=== PATIENT | male | born 1970 | race Caucasian/White ===

== ENCOUNTER 2024-02-28 13:07 | Outpatient (POV) | payer MEDICARE, SELFPAY ==
[2024-02-28 14:22] VITALS: BP 110/83; PULSE 74; RESP 18; O2SAT 93; BMI 32.3
--- NOTE | 2024-02-28 14:44 | A.OFFVIS_ITS ---
HPI Data of Consult Patient: known to practice within the last 3 years Consult date: 02/28/24 Requesting Physician: Pao Lea APRN Primary Care Provider: Bel Sylvester Consult Narrative Reason for consult: Chronic low back pain History of present illness: Mr. Conner is a 53 year old male who presents today as a new patient however he is a transfer from the [facility]. We were treating that patient in the office for degenerative disc disease of lumbar spine. Patient does state that he has had low back pain for years that is progressively worsened unrelated to any specific trauma or injury. Today he rates his pain a 4 out of 10. Patient does state that overall his intrathecal pump medication is working well. Patient is currently managed with morphine 5 mg/mL with a daily dose of 0.4803 mg/day and bupivacaine 5 mg/mL with a daily dose of 0.4803 mg/day. Patient did previously have a lumbar fusion back in 2018. Patient does state that he had tried conservative treatment prior to these options. Patient denies prior injection history. He does state that the pump has been a much better intervention than anything else prior. Patient was also prescribed Lyrica 200 mg twice a day from our office however once the [facility] temporarily closed he did end up having to go to his PCP to get this medication refilled. He does state that they are giving him a 3-month supply in order for him to get to this appointment. His Octavio has been reviewed and is appropriate. CC: Pao Lea APRN [facility] Disclaimer: The information contained in this section may have been updated after the patient was seen, as this information can be updated by other users. Medical History (Updated 02/28/24 @ 14:48 by Pao Lea APRN) HTN (hypertension) HLD (hyperlipidemia) Diabetes Fusion of lumbar spine Surgical History Hx of tonsillectomy Status post insertion of spinal cord stimulator History of appendectomy Family History (Updated 02/28/24 @ 13:45 by Amanda Silva RN) Other Unknown family medical history Social History (Updated 02/28/24 @ 13:46 by Amanda Silva, JESSICA) Smoking Status: Current every day smoker alcohol intake: never current occupational status: other Travel in the last 8 weeks: None Review of Systems Review of Systems Review of systems:: pertinent systems reviewed and negative unless documented below Review of systems (narrative): Review of Systems: General: No recent weight changes, no fever, no sleep disturbances Respiratory: No cough, no shortness of air, no recurring pulmonary infections Cardiovascular/peripheral vascular: No chest pain, no palpitations, no edema, no shortness of breath Gastrointestinal: No new onset incontinence, normal bowel movements reported Genitourinary: No new onset incontinence Musculoskeletal: Low back pain Psychiatric: [Normal mood/affect] Neurological: [Denies weakness in extremities], [denies balance issues] Meds Home Medications and Allergies New Prescriptions to Start Prescriptions: Objective Vital signs: Pulse Resp BP Pulse Ox O2 Del Method 74 18 110/83 93 L Room Air 02/28/24 14:02/28/24 14:02/28/24 14:02/28/24 14:02/28/24 14:22 Narrative: Physical Exam: General: Alert and oriented x3, no acute distress, pleasant and cooperative Lungs: Respirations even and unlabored, symmetrical chest expansion Eyes: PERRL Musculoskeletal: Flexion and extension of lumbar [spine] somewhat guarded secondary to pain, [antalgic gait noted] Neurological: Speech clear, no gross sensory deficit Assessment and Plan *Assessment and plan (1) Degenerative disc disease, lumbar: Status: Acute Category: Medical Code(s): M51.36 - Other intervertebral disc degeneration, lumbar region (2) Chronic pain syndrome: Status: Acute Category: Medical Code(s): G89.4 - Chronic pain syndrome (3) Fusion of lumbar spine: Status: Acute Category: Medical Code(s): M43.26 - Fusion of spine, lumbar region Plan Patient is doing well with his current pump medications. He has not A[facility] at home refill client. I have discussed with the patient that we have no problems continuing his pregabalin prescription and that if he would just call us about a week or 2 prior to his last refill from his PCP that we can send in an additional 3-month supply of this medication. Patient acknowledges understanding and agrees with this plan of care. Patient will return to clinic in 6 months for reevaluation of symptoms and plan of care. Patient has been instructed to contact the clinic with any concerns before the next appointment. Dr. Cavanaugh has reviewed this note and agrees with this plan of care. This note was dictated using voice recognition software and make contain errors or omissions. -- It Is medically necessary for this patient to continue to have their intrathecal pump refilled at regular intervals. This patient had an intrathecal pain pump implanted after meeting criteria of chronic intractable pain for greater than 3 months and failing conservative treatments. Patient has committed and been compliant to the treatment plan and all planned follow up care. Since implantation of the intrathecal pain pump, the patient has had decreased pain and been more functional. Oral medications have been reduced including intake of oral opioids. Patient continues to do well with intrathecal therapy with decrease in pain symptoms and increase in functional status. Stopping intrathecal medications can lead to life threatening withdrawal, seizures, cardiac arrest, severe pain, and possible . Pumps that are not refilled at regular intervals can be damages and cause and need for replacement. We continually titrate dose and concentration to optimize pain relief and function. We are limited in concentration for certain drugs to safely deliver medications through the pump and stay within the recommendations from the Polyanal[employer] Consensus [employer] Guidelines. Depending on dose and concentration these pumps may need to be refilled sooner than 3 months as we titrate.
== END 2024-02-28 23:59 | disposition home or self-care (01) ==
LOC: SC.PAIN 13:12
PROVIDERS: PCP Internal Medicine; Visit Provider Nurse Practitioner Family
DX: M51.36 Other intervertebral disc degeneration, lumbar region (principal); G89.4 Chronic pain syndrome; M43.26 Fusion of spine, lumbar region; Z97.8 Presence of other specified devices
CPT/HCPCS: 99202; G0463

== ENCOUNTER 2024-07-07 09:43 | Day surgery (SDC) | payer MEDICARE, SELFPAY ==
[2024-07-07 10:14] VITALS: BP 130/73; PULSE 69; RESP 16; O2SAT 92; BMI 32.3
[2024-07-07 10:46] VITALS: BP 121/74; PULSE 72; RESP 18; O2SAT 94
[2024-07-07 10:55] VITALS: BP 121/74; PULSE 72; RESP 18; O2SAT 97
[2024-07-07 11:04] VITALS: BP 132/69; PULSE 72; RESP 18; O2SAT 95
--- NOTE | 2024-07-07 12:38 | EXP.PAIN.PRO ---
Procedure Date: 07/07/24 Time: 10:12 Anesthesiologist:: Pao Lea APRN Complications:: None Pre-procedure Diagnosis:: Degenerative disc disease of lumbar spine with lumbar radiculopathy symptoms Post-procedure Diagnosis:: Same Indications for Procedure:: Patient is a pleasant 54-year-old male who presents today for intrathecal refill and reprogram. Today he rates his pain a 4 out of 10. Patient denies any new trauma or injury. Patient does state from her last visit he did have to have some toes amputated on his left foot. Patient states that he is still using a brace on that lower extremity to help with his walking. He does state that it is healing much better. Patient is currently managed with intrathecal morphine 5 mg/mL with a daily dose of 0.5287 mg/day and bupivacaine 5 mg/mL with a daily dose of 0.5287 mg/day. He denies any side effects from this medication. He is asking whether or not we could do a small increase today. His Octavio has been reviewed and is appropriate. Physical Exam: General: Alert and oriented x3, no acute distress, pleasant and cooperative Lungs: Respirations even and unlabored, symmetrical chest expansion Eyes: PERRL Musculoskeletal: Flexion and extension of lumbar [spine] somewhat guarded secondary to pain, [antalgic gait noted] Neurological: Speech clear, no gross sensory deficit Procedure Details:: Informed consent was obtained and the risk and benefits of the procedure were explained to the patient. The patient was taken to the procedure room where noninvasive monitoring was placed including noninvasive blood pressure cuff and pulse oximeter. Patient's pump was interrogated. The area over the pump was cleansed with chlorhexidine as a cleansing solution. In sterile fashion the pump was accessed with a 22-gauge needle. Approximately 5.2 mls of the pump solution was removed and discarded appropriately. The pump was then refilled with 20 mL's of morphine 5 mg/mL and bupivacaine 5 mg/mL. The needle was withdrawn and a bandage was placed over the puncture site. The infusion rate was reprogrammed and increased to morphine 0.6335 mg/day and bupivacaine 0.6335 mg/day. The patient tolerated well with no complication. Plan and Disposition:: Patient tolerated his intrathecal refill and reprogram with no complications and was discharged neurologically intact. Patient is scheduled to return to clinic on or before his next intrathecal refill date of 10/06/2024. Patient agrees with this plan of care. We will see the patient back in the clinic at the next intrathecal refill. Patient has been instructed to contact the clinic with any concerns before the next appointment. Dr. Cavanaugh has reviewed this note and agrees with this plan of care. This note was dictated using voice recognition software and make contain errors or omissions. -- It Is medically necessary for this patient to continue to have their intrathecal pump refilled at regular intervals. This patient had an intrathecal pain pump implanted after meeting criteria of chronic intractable pain for greater than 3 months and failing conservative treatments. Patient has committed and been compliant to the treatment plan and all planned follow up care. Since implantation of the intrathecal pain pump, the patient has had decreased pain and been more functional. Oral medications have been reduced including intake of oral opioids. Patient continues to do well with intrathecal therapy with decrease in pain symptoms and increase in functional status. Stopping intrathecal medications can lead to life threatening withdrawal, seizures, cardiac arrest, severe pain, and possible . Pumps that are not refilled at regular intervals can be damages and cause and need for replacement. We continually titrate dose and concentration to optimize pain relief and function. We are limited in concentration for certain drugs to safely deliver medications through the pump and stay within the recommendations from the Polyanalges[employer] Consensus Committee Guidelines. Depending on dose and concentration these pumps may need to be refilled sooner than 3 months as we titrate.
== END 2024-07-07 11:05 | disposition home or self-care (01) ==
LOC: SC.PAINP 09:45
PROVIDERS: PCP Internal Medicine; Visit Provider Nurse Practitioner Family
DX: M51.16 Intervertebral disc disorders with radiculopathy, lumbar region (principal)
CPT/HCPCS: 62370

== ENCOUNTER → 2024-09-19 11:05 | Day surgery (SDC) | payer MEDICARE, OTHER, SELFPAY ==
--- NOTE | 2024-09-19 11:20 | EXP.PAIN.PRO ---
Procedure Date: 09/19/24 Time: 11:43 Anesthesiologist:: Pao Lea APRN Complications:: None Pre-procedure Diagnosis:: Degenerative disc disease of lumbar spine with lumbar radiculopathy symptoms, chronic pain syndrome, history of lumbar fusion Post-procedure Diagnosis:: Same Indications for Procedure:: Patient is a pleasant 54-year-old male who presents today for intrathecal refill and reprogram. Today he rates his pain 2 out of a 10. Patient denies any new trauma or injury. He does state that he is primary care did end up trying him on gabapentin recently and he felt like this worked better than the pregabalin. Patient states he has been on pregabalin for about 2 years and always feels very groggy or in a fog. Patient states that the gabapentin did not do that however he felt like it night it was not working as well. Patient is asking if we can make any adjustments. Patient is currently managed with Morphine 5 mg/mL and bupivacaine 5 mg/mL with a daily dose of 0.6335 mg/day. He denies any side effects from this medication. He feels like the current dosage is working well. His Octavio has been reviewed and is appropriate. Physical Exam: General: Alert and oriented x3, no acute distress, pleasant and cooperative Lungs: Respirations even and unlabored, symmetrical chest expansion Eyes: PERRL Musculoskeletal: Flexion and extension of lumbar [spine] somewhat guarded secondary to pain, [antalgic gait noted] Neurological: Speech clear, no gross sensory deficit Procedure Details:: Informed consent was obtained and the risk and benefits of the procedure were explained to the patient. The patient had noninvasive monitoring placed including noninvasive blood pressure cuff and pulse oximeter. Patient's pump was interrogated. The area over the pump was cleansed with chlorhexidine as a cleansing solution. In sterile fashion the pump was accessed with a 22-gauge needle. Approximately 9 mls of the pump solution was removed and discarded appropriately. The pump was then refilled with 20 mL's of morphine 5 mg/mL and bupivacaine 5 mg/mL. The needle was withdrawn and a bandage was placed over the puncture site. The infusion rate was reprogrammed and continued at 0.6335 mg/day. The patient tolerated well with no complication. Plan and Disposition:: Patient tolerated his intrathecal refill and reprogram with no complications and was discharged neurologically intact. I did discuss with the patient that I will plan on taking back over the gabapentin and I will change it to 600 mg 4 times a day and provide a 1 month supply of this medication. I did discuss with the patient that I will follow-up with him next month to see if this is helping by taking 2 tablets at bedtime. If he does get significant relief with this we will keep this dosage however I did also discuss with him if he still has more trouble at night we may throwing and tizanidine 4 mg at bedtime. We will follow-up with this at his 1 month appointment. Patient will have his next intrathecal refill date of December 20, 2024 We will see the patient back in the clinic at the next intrathecal refill. Patient has been instructed to contact the clinic with any concerns before the next appointment. Dr. Cavanaugh has reviewed this note and agrees with this plan of care. This note was dictated using voice recognition software and make contain errors or omissions. -- It Is medically necessary for this patient to continue to have their intrathecal pump refilled at regular intervals. This patient had an intrathecal pain pump implanted after meeting criteria of chronic intractable pain for greater than 3 months and failing conservative treatments. Patient has committed and been compliant to the treatment plan and all planned follow up care. Since implantation of the intrathecal pain pump, the patient has had decreased pain and been more functional. Oral medications have been reduced including intake of oral opioids. Patient continues to do well with intrathecal therapy with decrease in pain symptoms and increase in functional status. Stopping intrathecal medications can lead to life threatening withdrawal, seizures, cardiac arrest, severe pain, and possible . Pumps that are not refilled at regular intervals can be damages and cause and need for replacement. We continually titrate dose and concentration to optimize pain relief and function. We are limited in concentration for certain drugs to safely deliver medications through the pump and stay within the recommendations from the Polyanalgesic Consensus Committee Guidelines. Depending on dose and concentration these pumps may need to be refilled sooner than 3 months as we titrate.
[2024-09-19 11:23] VITALS: BP 162/89; PULSE 77; RESP 18; O2SAT 94; BMI 31.5
[2024-09-19 11:32] VITALS: BP 144/84; PULSE 70; RESP 18; O2SAT 93
[2024-09-19 11:38] VITALS: BP 144/84; PULSE 70; RESP 18; O2SAT 93
[2024-09-19 11:50] VITALS: BP 129/72; PULSE 69; RESP 18; O2SAT 93
== END | disposition home or self-care (01) ==
PROVIDERS: PCP Internal Medicine; Visit Provider Nurse Anesthetist, Certified Registered
DX: M51.16 Intervertebral disc disorders with radiculopathy, lumbar region (principal); G89.4 Chronic pain syndrome; M43.26 Fusion of spine, lumbar region
CPT/HCPCS: 62370; 99212; G0463

== ENCOUNTER 2024-12-08 10:27 | Day surgery (SDC) | payer MEDICARE, SELFPAY ==
--- NOTE | 2024-12-08 10:47 | P.PCN_ITS ---
Procedure Date: 12/08/24 Time: 10:47 Anesthesiologist:: Pao Lea APRN Complications:: None Pre-procedure Diagnosis:: Degenerative disc disease of lumbar spine with lumbar radiculopathy symptoms, history of lumbar fusion, chronic pain syndrome Post-procedure Diagnosis:: Same Indications for Procedure:: Patient is a pleasant 54-year-old male who presents for intrathecal refill and reprogram. Today he rates his pain a 3 out of 10. He denies any new trauma or injury. He states that the last time we did increase the pump that he has continued to do well with this and does not need any additional adjustment. He is currently managed with morphine and bupivacaine 5 mg/mL with a daily dose of 0.6335 mg/day. He is also managed with pregabalin 200 mg 3 times a day from our office. He denies any side effects and does state that he picked up his last prescription and will need refills. Patient does state that he is interested in the new nonopioid pain medication that is coming out. His Octavio has been reviewed and is appropriate. Physical Exam: General: Alert and oriented x3, no acute distress, pleasant and cooperative Lungs: Respirations even and unlabored, symmetrical chest expansion Eyes: PERRL Musculoskeletal: Flexion and extension of lumbar [spine] somewhat guarded secondary to pain, [antalgic gait noted] Neurological: Speech clear, no gross sensory deficit Procedure Details:: Informed consent was obtained and the risk and benefits of the procedure were explained to the patient. The patient had noninvasive monitoring placed including noninvasive blood pressure cuff and pulse oximeter. Patient's pump wa s interrogated. The area over the pump was cleansed with chlorhexidine as a cleansing solution. In sterile fashion the pump was accessed with a 22-gauge needle. Approximately 9 mls of the pump solution was removed and discarded appropriately. The pump was then refilled with 20 mL's of morphine 5 mg/mL and bupivacaine 5 mg/mL with a daily dose of 0.6335 mg/day. The needle was withdrawn and a bandage was placed over the puncture site. The infusion rate was reprogrammed and continued at its current dosage. The patient tolerated well with no complication. Plan and Disposition:: Patient tolerated the procedure well with no complications and was discharged neurologically intact. I will refill his pregabalin and provide a 3-month supply of this medication. I did also discuss with him regarding the new nonopioid pain medication that we can definitely try it and that we will have to wait and see whether or not when it officially makes it to pharmacies and whether or not insurance is covering it. Patient will return to clinic on or before their next intrathecal refill date. We will see the patient back in the clinic at the next intrathecal refill. Patient has been instructed to contact the clinic with any concerns before the next appointment. Dr. Cavanaugh has reviewed this note and agrees with this plan of care. This note was dictated using voice recognition software and make contain errors or omissions. -- It Is medically necessary for this patient to continue to have their intrathecal pump refilled at regular intervals. This patient had an intrathecal pain pump implanted after meeting criteria of chronic intractable pain for greater than 3 months and failing conservative treatments. Patient has committed and been compl iant to the treatment plan and all planned follow up care. Since implantation of the intrathecal pain pump, the patient has had decreased pain and been more functional. Oral medications have been reduced including intake of oral opioids. Patient continues to do well with intrathecal therapy with decrease in pain symptoms and increase in functional status. Stopping intrathecal medications can lead to life threatening withdrawal, seizures, cardiac arrest, severe pain, and possible . Pumps that are not refilled at regular intervals can be damages and cause and need for replacement. We continually titrate dose and concentration to optimize pain relief and function. We are limited in concentration for certain drugs to safely deliver medications through the pump and stay within the recommendations from the Polyanalgesic Consensus Committee Guidelines. Depending on dose and concentration these pumps may need to be refilled sooner than 3 months as we titrate. A UDS is needed to verify patient's compliance with our office pain contract. This is ordered based off specific treatments related to chronic pain with the potential to abuse certain medications.
[2024-12-08 10:49] VITALS: BP 125/60; PULSE 60; RESP 16; TEMP 36.9; O2SAT 95; BMI 31.5
[2024-12-08 10:50] VITALS: BP 121/64; PULSE 68; RESP 18; O2SAT 97
[2024-12-08 10:52] VITALS: BP 121/64; PULSE 68; RESP 18; O2SAT 97
[2024-12-08 11:06] VITALS: BP 115/76; PULSE 67; RESP 16; O2SAT 95
== END 2024-12-08 11:06 | disposition home or self-care (01) ==
PROVIDERS: PCP Internal Medicine; Visit Provider Nurse Practitioner Family
DX: M51.16 Intervertebral disc disorders with radiculopathy, lumbar region (principal); M43.26 Fusion of spine, lumbar region; G89.4 Chronic pain syndrome
CPT/HCPCS: 62370

== ENCOUNTER 2024-12-11 15:26 | Outpatient (POV) | payer MEDICARE, SELFPAY ==
[2024-12-11 15:43] VITALS: BP 134/73; PULSE 69; RESP 18; O2SAT 93; BMI 31.6
--- NOTE | 2024-12-11 15:49 | EXP.PAIN.SOA ---
[facility] Disclaimer: The information contained in this section may have been updated after the patient was seen, as this information can be updated by other users. Medical History HTN (hypertension) HLD (hyperlipidemia) Diabetes Fusion of lumbar spine Surgical History Hx of tonsillectomy Status post insertion of spinal cord stimulator History of appendectomy Family History Other Unknown family medical history Social History Smoking Status: Current every day smoker alcohol intake: never current occupational status: other Travel in the last 8 weeks: None PM Subjective & Objective Subjective Subjective:: Patient is a pleasant 54-year-old male who presents today for follow-up. Today he rates his pain a 3 out of 10. He does state that his pump seems to be working well with the combination of morphine and bupivacaine 5 mg/mL with a daily dose of 0.6335 mg/day. Patient is also on pregabalin 200 mg 3 times a day and was just given a 3-month supply of this medication. Patient denies any side effects. He is asking if there is anything that we can do in addition to help him sleep better during the night. He states he is often waking up in the middle of the night due to spasms and pain. His Octavio has been reviewed and is appropriate. Review of Systems: General: No recent weight changes, no fever, no sleep disturbances Respiratory: No cough, no shortness of air, no recurring pulmonary infections Cardiovascular/peripheral vascular: No chest pain, no palpitations, no edema, no shortness of breath Gastrointestinal: No new onset incontinence, normal bowel movements reported Genitourinary: No new onset incontinence Musculoskeletal: Low back pain Psychiatric: [Normal mood/affect] Neurological: [Denies weakness in extremities], [denies balance issues] Pain at rest (0-10 scale): 3 Objective Objective:: Physical Exam: General: Alert and oriented x3, no acute distress, pleasant and cooperative Lungs: Respirations even and unlabored, symmetrical chest expansion Eyes: PERRL Musculoskeletal: Flexion and extension of lumbar [spine] somewhat guarded secondary to pain, [antalgic gait noted] Neurological: Speech clear, no gross sensory deficit Has patient had previous pain injection?: No Conservative treatment options previously tried: Home exercise plan Length of treatment: Longer than 12 weeks Meds Home Medications and Allergies Home Medications ?Medication ?Instructions ?Recorded ?Confirmed ?Type atorvastatin 20 mg tablet 20 mg PO DAILY Cholesterol 02/28/24 12/11/24 History bupivacaine (PF) 0.5 % (5 mg/mL) 5 mg continuous epidural CONT Pain 02/28/24 12/11/24 History injection solution dulaglutide 1.5 mg/0.5 mL 1.5 mg SQ WEEKLY Diabetes 02/28/24 12/11/24 History subcutaneous pen injector (Trulicity) insulin lispro 100 unit/mL 20 unit SQ TID Diabetes 02/28/24 12/11/24 History subcutaneous pen (Humalog KwikPen (U-100) Insulin) morphine (PF) 1 mg/mL injection 5 mg continuous intrathecal 02/28/24 12/11/24 History solution infusion CONT Pain nabumetone 750 mg tablet 750 mg PO BID 02/28/24 12/11/24 History pregabalin 200 mg capsule 200 mg PO TID #90 caps 12/08/24 12/11/24 Rx New Prescriptions to Start Prescriptions: Allergies Allergy/AdvReac Type Severity Reaction Status Date / Time barley AdvReac Verified 02/28/24 15:09 metformin AdvReac Verified 02/28/24 15:09 milk AdvReac Verified 02/28/24 15:09 sitagliptin AdvReac Verified 02/28/24 15:09 Assessment and Plan *Assessment and plan (1) Chronic pain syndrome: Status: Acute Category: Medical Code(s): G89.4 - Chronic pain syndrome (2) Fusion of lumbar spine: Status: Acute Category: Medical Code(s): M43.26 - Fusion of spine, lumbar region (3) Degenerative disc disease, lumbar: Status: Acute Category: Medical Code(s): M51.369 - Other intervertebral disc degeneration, lumbar region without mention of lumbar back pain or lower extremity pain Plan I did discuss with the patient that I will order the patient a compounded cream and also send in a prescription of tizanidine 4 mg with a 2-week supply. Patient will return to clinic in 2 weeks for reevaluation of symptoms and plan of care. Patient has been instructed to contact the clinic with any concerns before the next appointment. Dr. Cavanaugh has reviewed this note and agrees with this plan of care. This note was dictated using voice recognition software and make contain errors or omissions. -- It Is medically necessary for this patient to continue to have their intrathecal pump refilled at regular intervals. This patient had an intrathecal pain pump implanted after meeting criteria of chronic intractable pain for greater than 3 months and failing conservative treatments. Patient has committed and been compliant to the treatment plan and all planned follow up care. Since implantation of the intrathecal pain pump, the patient has had decreased pain and been more functional. Oral medications have been reduced including intake of oral opioids. Patient continues to do well with intrathecal therapy with decrease in pain symptoms and increase in functional status. Stopping intrathecal medications can lead to life threatening withdrawal, seizures, cardiac arrest, severe pain, and possible . Pumps that are not refilled at regular intervals can be damages and cause and need for replacement. We continually titrate dose and concentration to optimize pain relief and function. We are limited in concentration for certain drugs to safely deliver medications through the pump and stay within the recommendations from the Polyanalgesic Consensus Committee Guidelines. Depending on dose and concentration these pumps may need to be refilled sooner than 3 months as we titrate. A UDS is needed to verify patient's compliance with our office pain contract. This is ordered based off specific treatments related to chronic pain with the potential to abuse certain medications.
== END 2024-12-11 23:59 | disposition home or self-care (01) ==
PROVIDERS: PCP Internal Medicine; Visit Provider Nurse Practitioner Family
DX: G89.4 Chronic pain syndrome (principal); M43.26 Fusion of spine, lumbar region; M51.369 Other intervertebral disc degeneration, lumbar region without mention of lumbar back pain or lower extremity pain; F17.210 Nicotine dependence, cigarettes, uncomplicated
CPT/HCPCS: 99212; G0463

== ENCOUNTER 2024-12-27 15:01 | Outpatient (POV) | payer MEDICARE, SELFPAY ==
[2024-12-27 15:27] VITALS: BP 146/76; BP 149/76; PULSE 70; RESP 14; O2SAT 95; BMI 31.5
--- NOTE | 2024-12-27 15:44 | A.OFFVIS_ITS ---
[facility] Disclaimer: The information contained in this section may have been updated after the patient was seen, as this information can be updated by other users. Medical History (Updated 12/27/24 @ 15:51 by Pao Lea APRN) HTN (hypertension) HLD (hyperlipidemia) Diabetes Fusion of lumbar spine Surgical History Hx of tonsillectomy Status post insertion of spinal cord stimulator History of appendectomy Family History Other Unknown family medical history Social History Smoking Status: Current every day smoker alcohol intake: never current occupational status: other Travel in the last 8 weeks: None Have you lived/traveled outside [place] in past 30 days?: No Contact w/someone who lives/traveled outside US past 30 days?: No Exposure to someone with infectious disease in past 14 days?: No Do you have a fever (greater than 100.4 F or 38 C)?: No Have you tested positive for COVID-19: No Exposed to someone with COVID-19 in past 14 days?: No Do you have a sore throat?: No Do you have a cough?: No Do you have any weakness?: No Do you have any diarrhea?: No Are you experiencing any unusual bleeding?: No Do you have any muscle aches/pain?: No Do you have any abdominal pain?: No Are you experiencing loss of taste or smell?: No PM Subjective & Objective Subjective Subjective:: Patient is a pleasant 54-year-old male who presents today for follow-up. Today he rates his pain a 5 out of 10. He denies any new injury or trauma. He does state that with the tizanidine he really did not notice much improvement. He states he is gotten the compounded cream but only had it for about a week.. He does state today that he has been having still a lot more pain in his hands that they are cold and painful with numbness and tingling. Patient is currently managed with pregabalin 200 mg 3 times a day and morphine and bupivacaine intrathecal medication with a daily dose of 0.6335 mg/day. He denies any side effects from this medication and feels like this is helping. His Octavio has been reviewed and is appropriate. Review of Systems: General: No recent weight changes, no fever, no sleep disturbances Respiratory: No cough, no shortness of air, no recurring pulmonary infections Cardiovascular/peripheral vascular: No chest pain, no palpitations, no edema, no shortness of breath Gastrointestinal: No new onset incontinence, normal bowel movements reported Genitourinary: No new onset incontinence Musculoskeletal: Neck pain, bilateral hand numbness, tingling Psychiatric: [Normal mood/affect] Neurological: [Denies weakness in extremities], [denies balance issues] Pain at rest (0-10 scale): 5 Objective Objective:: Physical Exam: General: Alert and oriented x3, no acute distress, pleasant and cooperative Lungs: Respirations even and unlabored, symmetrical chest expansion Eyes: PERRL Musculoskeletal: Flexion and extension of cervical [spine] somewhat guarded secondary to pain, [antalgic gait noted] Neurological: Speech clear, no gross sensory deficit Has patient had previous pain injection?: No Conservative treatment options previously tried: Home exercise plan Length of treatment: Longer than 12 weeks Meds Home Medications and Allergies Home Medications ?Medication ?Instructions ?Recorded ?Confirmed ?Type atorvastatin 20 mg tablet 20 mg PO DAILY Cholesterol 02/28/24 12/27/24 History bupivacaine (PF) 0.5 % (5 mg/mL) 5 mg continuous epidural CONT Pain 02/28/24 12/27/24 History injection solution dulaglutide 1.5 mg/0.5 mL 1.5 mg SQ WEEKLY Diabetes 02/28/24 12/27/24 History subcutaneous pen injector (Trulicity) insulin lispro 100 unit/mL 20 unit SQ TID Diabetes 02/28/24 12/27/24 History subcutaneous pen (Humalog KwikPen (U-100) Insulin) morphine (PF) 1 mg/mL injection 5 mg continuous intrathecal 02/28/24 12/27/24 History solution infusion CONT Pain nabumetone 750 mg tablet 750 mg PO BID 02/28/24 12/27/24 History pregabalin 200 mg capsule 200 mg PO TID #90 caps 12/08/24 12/27/24 Rx tizanidine 4 mg tablet (Zanaflex) 4 mg PO HS #14 tabs 12/11/24 12/27/24 Rx New Prescriptions to Start Prescriptions: Allergies Allergy/AdvReac Type Severity Reaction Status Date / Time barley AdvReac Verified 02/28/24 15:09 metformin AdvReac Verified 02/28/24 15:09 milk AdvReac Verified 02/28/24 15:09 sitagliptin AdvReac Verified 02/28/24 15:09 Assessment and Plan *Assessment and plan (1) Degenerative disc disease, cervical: Status: Acute Category: Medical Code(s): M50.30 - Other cervical disc degeneration, unspecified cervical region (2) Cervical radiculopathy: Status: Acute Category: Medical Code(s): M54.12 - Radiculopathy, cervical region Plan Patient was counseled due to his increased neck pain with radiating numbness and tingling into his bilateral hands and altered business support specialist that he may benefit from a cervical epidural. Risk and benefits were discussed with the patient however at this time he would like to wait. I did discuss with the patient that I will send in another muscle relaxer for him to try and see if that helps better than the previous tizanidine. Patient will be given baclofen 10 mg at bedtime. Patient did also state from our last visit he ended up having a screw in his shoe and now has an ulcer on 1 foot and then had a Achilles tendon rupture on the opposite. Patient does have a lot going on related to this. Patient has tried anti-inflammatories in the past including Celebrex. We will follow-up with him at his next intrathecal refill date. Patient agrees with this plan of care and states that overall pump medication is working well to provide improvement in his spine. Patient did also discuss regarding his nonfunctioning stimulator that is still present. Patient states that he has had it since 2019 when he had an issue where the leads went out of place and then they were not able to program this additionally. Patient states that this time he is not looking to have it replaced. We will follow-up with this in future. We will see the patient back in the clinic at the next intrathecal refill. Patient has been instructed to contact the clinic with any concerns before the next appointment. Dr. Cavanaugh has reviewed this note and agrees with this plan of care. This note was dictated using voice recognition software and make contain errors or omissions. -- It Is medically necessary for this patient to continue to have their intrathecal pump refilled at regular intervals. This patient had an intrathecal pain pump implanted after meeting criteria of chronic intractable pain for greater than 3 months and failing conservative treatments. Patient has committed and been compliant to the treatment plan and all planned follow up care. Since implantation of the intrathecal pain pump, the patient has had decreased pain and been more functional. Oral medications have been reduced including intake of oral opioids. Patient continues to do well with intrathecal therapy with decrease in pain symptoms and increase in functional status. Stopping intrathe fanny medications can lead to life threatening withdrawal, seizures, cardiac arrest, severe pain, and possible . Pumps that are not refilled at regular intervals can be damages and cause and need for replacement. We continually titrate dose and concentration to optimize pain relief and function. We are limited in concentration for certain drugs to safely deliver medications through the pump and stay within the recommendations from the Polyanalgesic Consensus Committee Guidelines. Depending on dose and concentration these pumps may need to be refilled sooner than 3 months as we titrate. A UDS is needed to verify patient's compliance with our office pain contract. This is ordered based off specific treatments related to chronic pain with the potential to abuse certain medications.
== END 2024-12-27 23:59 | disposition home or self-care (01) ==
PROVIDERS: PCP Internal Medicine; Visit Provider Nurse Practitioner Family
DX: M50.10 Cervical disc disorder with radiculopathy, unspecified cervical region (principal); F17.210 Nicotine dependence, cigarettes, uncomplicated
CPT/HCPCS: 99212; G0463

== ENCOUNTER 2025-02-23 11:22 | Day surgery (SDC) | payer MEDICARE, SELFPAY ==
--- NOTE | 2025-02-23 11:29 | EXP.HP ---
History of Present Illness *Admission Date: 02/23/25 *Reason for visit:: Intrathecal refill; DDD *History of present illness: Degenerative disc disease [facility] Disclaimer: The information contained in this section may have been updated after the patient was seen, as this information can be updated by other users. Medical History (Updated 12/27/24 @ 15:51 by Pao Lea APRN) HTN (hypertension) HLD (hyperlipidemia) Diabetes Fusion of lumbar spine Surgical History Hx of tonsillectomy Status post insertion of spinal cord stimulator History of appendectomy Family History Other Unknown family medical history Social History Smoking Status: Current every day smoker alcohol intake: never current occupational status: other Travel in the last 8 weeks?: None Have you lived/traveled outside US in past 30 days?: No Contact w/someone who lives/traveled outside US past 30 days?: No Exposure to someone with infectious disease in past 14 days?: No Do you have a fever (greater than 100.4 F or 38 C)?: No Have you tested positive for COVID-19?: No Exposed to someone with COVID-19 in past 14 days?: No Do you have a sore throat?: No Do you have a cough?: No Do you have any weakness?: No Do you have any diarrhea?: No Are you experiencing any unusual bleeding?: No Do you have any muscle aches/pain?: No Do you have any abdominal pain?: No Are you experiencing loss of taste or smell?: No Other Medical History Have you received the Flu Vaccine for this season: Yes Have you received the Pneumonia Vaccine: No Review of Systems Review of Systems Review of systems:: pertinent systems reviewed and negative unless documented below Review of systems (narrative): Review of Systems: General: No recent weight changes, no fever, no sleep disturbances Respiratory: No cough, no shortness of air, no recurring pulmonary infections Cardiovascular/peripheral vascular: No chest pain, no palpitations, no edema, no shortness of breath Gastrointestinal: No new onset incontinence, normal bowel movements reported Genitourinary: No new onset incontinence Musculoskeletal: Chronic back pain Psychiatric: [Normal mood/affect] Neurological: [Denies weakness in extremities], [denies balance issues] Meds Home Medications and Allergies Home Medications ?Medication ?Instructions ?Recorded ?Confirmed ?Type atorvastatin 20 mg tablet 20 mg PO DAILY Cholesterol 02/28/24 12/27/24 History bupivacaine (PF) 0.5 % (5 mg/mL) 5 mg continuous epidural CONT Pain 02/28/24 12/27/24 History injection solution dulaglutide 1.5 mg/0.5 mL 1.5 mg SQ WEEKLY Diabetes 02/28/24 12/27/24 History subcutaneous pen injector (Trulicity) insulin lispro 100 unit/mL 20 unit SQ TID Diabetes 02/28/24 12/27/24 History subcutaneous pen (Humalog KwikPen (U-100) Insulin) morphine (PF) 1 mg/mL injection 5 mg continuous intrathecal 02/28/24 12/27/24 History solution infusion CONT Pain nabumetone 750 mg tablet 750 mg PO BID 02/28/24 12/27/24 History pregabalin 200 mg capsule 200 mg PO TID #90 caps 12/08/24 12/27/24 Rx tizanidine 4 mg tablet (Zanaflex) 4 mg PO HS #14 tabs 12/11/24 12/27/24 Rx baclofen 10 mg tablet 10 mg PO HS #14 tabs 12/27/24 Rx suzetrigine 50 mg tablet (Journavx) 50 mg PO DAILY #30 tabs 01/17/25 Rx New Prescriptions to Start Prescriptions: Allergies Allergy/AdvReac Type Severity Reaction Status Date / Time barley AdvReac Verified 02/28/24 15:09 metformin AdvReac Verified 02/28/24 15:09 milk AdvReac Verified 02/28/24 15:09 sitagliptin AdvReac Verified 02/28/24 15:09 Exam Constitutional Constitutional: no acute distress *Routine HEENT Exam Head: Present normocephalic and atraumatic Eye: Present PERRL ENT: Present mucous membranes moist *Routine Neck Exam Neck: Present supple *Routine Respiratory Exam Respiratory: Present CTA bilaterally *Routine Cardiovascular Exam Cardiovascular: Present RRR *Routine Abdominal Exam Abdominal: Present soft *Routine Rectal Exam Rectal:: deferred *Routine Genitalia Exam Genitalia:: normal male Routine Back/Spine/Pelvis Exam Back/Spine: Present pain with flexion *Routine Skin Exam Skin: Present intact and warm *Routine Neurological Exam Neurological: Present alert and oriented X3 Routine Psychiatric Exam Psychiatric: Present normal affect and normal thought process Assessment and Plan *Assessment and plan (1) Cervical radiculopathy: Status: Acute Category: Medical Code(s): M54.12 - Radiculopathy, cervical region (2) Degenerative disc disease, cervical: Status: Acute Category: Medical Code(s): M50.30 - Other cervical disc degeneration, unspecified cervical region (3) Degenerative disc disease, lumbar: Status: Acute Category: Medical Code(s): M51.369 - Other intervertebral disc degeneration, lumbar region without mention of lumbar back pain or lower extremity pain Plan Patient has been instructed to contact the clinic with any concerns before the next appointment. Dr. Cavanaugh has reviewed this note and agrees with this plan of care. This note was dictated using voice recognition software and make contain errors or omissions. All injections are used with Lidocaine, Bupivacaine and dexamethasone. Occasionally urine drug screen is needed to verify patient's compliance with our office pain contract. This is ordered based off specific treatments related to chronic pain with the potential to abuse certain medications.
--- NOTE | 2025-02-23 11:30 | P.PCN_ITS ---
Procedure Date: 02/23/25 Time: 11:56 Anesthesiologist:: Pao Lea APRN Complications:: None Pre-procedure Diagnosis:: Degenerative disc disease of cervical and lumbar spine with cervical and lumbar radiculopathy symptoms Post-procedure Diagnosis:: Same Indications for Procedure:: Patient is a pleasant 54-year-old male who presents today for intrathecal refill and reprogram. Today he rates his pain 5 out of 10. Patient does state that he did just have a procedure to remove a toe there and Laura yesterday he does arrive today with a boot on his right foot. He is prescribed pregabalin 200 mg 3 times daily and baclofen 10 mg at bedtime from our office. He does state that he still notices very little improvement with the muscle relaxer and so he has discontinued it. He is currently managed with intrathecal morphine 5 mg/mL and bupivacaine 5 mg/mL with a daily dose of 0.6335 mg/day. He denies any side effects. His Octavio has been reviewed and is appropriate. Physical Exam: General: Alert and oriented x3, no acute distress, pleasant and cooperative Lungs: Respirations even and unlabored, symmetrical chest expansion Eyes: PERRL Musculoskeletal: Flexion and extension of lumbar [spine] somewhat guarded secondary to pain, [antalgic gait noted] Neurological: Speech clear, no gross sensory deficit Procedure Details:: Informed consent was obtained and the risk and benefits of the procedure were explained to the patient. The patient had noninvasive monitoring placed including noninvasive blood pressure cuff and pulse oximeter. Patient's pump was interrogated. The area over the pump was cleansed with chlorhexidine as a cleansing solution. In sterile fashion the pump was accessed with a 22-gauge needle. Approximately 8.5 mls of the pump solution was removed and discarded appropriately. The pump was then refilled with 20 mL's of morphine 5 mg/mL and bupivacaine 5 mg/mL. The needle was withdrawn and a bandage was placed over the puncture site. The infusion rate was reprogrammed and increased 15% to 0.7293 mg/day. The patient tolerated well with no complication. Plan and Disposition:: Patient tolerated the procedure well with no complications and was discharged neurologically intact. I will make sure he has refills on his pregabalin. Patient will return to clinic on or before their next intrathecal refill date. We will see the patient back in the clinic at the next intrathecal refill. Patient has been instructed to contact the clinic with any concerns before the next appointment. Dr. Cavanaugh has reviewed this note and agrees with this plan of care. This note was dictated using voice recognition software and make contain errors or omissions. -- It Is medically necessary for this patient to continue to have their intrathecal pump refilled at regular intervals. This patient had an intrathecal pain pump implanted after meeting criteria of chronic intractable pain for greater than 3 months and failing conservative treatments. Patient has committed and been compliant to the treatment plan and all planned follow up care. Since implantation of the intrathecal pain pump, the patient has had decreased pain and been more functional. Oral medications have been reduced including intake of oral opioids. Patient continues to do well with intrathecal therapy with decrease in pain symptoms and increase in functional status. Stopping intrat hecal medications can lead to life threatening withdrawal, seizures, cardiac arrest, severe pain, and possible . Pumps that are not refilled at regular intervals can be damages and cause and need for replacement. We continually titrate dose and concentration to optimize pain relief and function. We are limited in concentration for certain drugs to safely deliver medications through the pump and stay within the recommendations from the Polyanalgesic Consensus Committee Guidelines. Depending on dose and concentration these pumps may need to be refilled sooner than 3 months as we titrate. A UDS is needed to verify patient's compliance with our office pain contract. This is ordered based off specific treatments related to chronic pain with the potential to abuse certain medications.
[2025-02-23 11:34] VITALS: BP 139/82; PULSE 68; RESP 16; O2SAT 96; BMI 31.5
[2025-02-23 11:54] VITALS: BP 139/82; PULSE 68; RESP 18; O2SAT 95
[2025-02-23 12:29] VITALS: BP 142/93; PULSE 65; RESP 16; O2SAT 95
== END 2025-02-23 12:29 | disposition home or self-care (01) ==
PROVIDERS: PCP Internal Medicine; Visit Provider Nurse Practitioner Family
DX: M50.10 Cervical disc disorder with radiculopathy, unspecified cervical region (principal); M51.16 Intervertebral disc disorders with radiculopathy, lumbar region
CPT/HCPCS: 62370

== ENCOUNTER 2025-05-11 11:09 | Day surgery (SDC) | payer MEDICARE, SELFPAY ==
--- NOTE | 2025-05-11 11:18 | EXP.PM.HP ---
History of Present Illness *Admission Date: 05/11/25 *Reason for visit:: Intrathecal refill; DDD *History of present illness: Same [facility] Disclaimer: The information contained in this section may have been updated after the patient was seen, as this information can be updated by other users. Medical History HTN (hypertension) HLD (hyperlipidemia) Diabetes Fusion of lumbar spine Surgical History Hx of tonsillectomy Status post insertion of spinal cord stimulator History of appendectomy Family History Other Unknown family medical history Social History Smoking Status: Current every day smoker alcohol intake: never current occupational status: other Travel in the last 8 weeks?: None Have you lived/traveled outside [place] in past 30 days?: No Contact w/someone who lives/traveled outside [place] past 30 days?: No Exposure to someone with infectious disease in past 14 days?: No Do you have a fever (greater than 100.4 F or 38 C)?: No Have you tested positive for COVID-19?: No Exposed to someone with COVID-19 in past 14 days?: No Do you have a sore throat?: No Do you have a cough?: No Do you have any weakness?: No Do you have any diarrhea?: No Are you experiencing any unusual bleeding?: No Do you have any muscle aches/pain?: No Do you have any abdominal pain?: No Are you experiencing loss of taste or smell?: No Other Medical History Have you received the Flu Vaccine for this season: No Have you received the Pneumonia Vaccine: No Review of Systems Review of Systems Review of systems:: pertinent systems reviewed and negative unless documented below Review of systems (narrative): Review of Systems: General: No recent weight changes, no fever, no sleep disturbances Respiratory: No cough, no shortness of air, no recurring pulmonary infections Cardiovascular/peripheral vascular: No chest pain, no palpitations, no edema, no shortness of breath Gastrointestinal: No new onset incontinence, normal bowel movements reported Genitourinary: No new onset incontinence Musculoskeletal: Chronic back pain Psychiatric: [Normal mood/affect] Neurological: [Denies weakness in extremities], [denies balance issues] Meds Home Medications and Allergies Home Medications ?Medication ?Instructions ?Recorded ?Confirmed ?Type atorvastatin 20 mg tablet 20 mg PO DAILY Cholesterol 02/28/24 02/23/25 History bupivacaine (PF) 0.5 % (5 mg/mL) 5 mg continuous epidural CONT Pain 02/28/24 02/23/25 History injection solution dulaglutide 1.5 mg/0.5 mL 1.5 mg SQ WEEKLY Diabetes 02/28/24 02/23/25 History subcutaneous pen injector (Trulicity) insulin lispro 100 unit/mL 20 unit SQ TID Diabetes 02/28/24 02/23/25 History subcutaneous pen (Humalog KwikPen (U-100) Insulin) morphine (PF) 1 mg/mL injection 5 mg continuous intrathecal 02/28/24 02/23/25 History solution infusion CONT Pain nabumetone 750 mg tablet 750 mg PO BID 02/28/24 02/23/25 History tizanidine 4 mg tablet (Zanaflex) 4 mg PO HS #14 tabs 12/11/24 02/23/25 Rx baclofen 10 mg tablet 10 mg PO HS #14 tabs 12/27/24 02/23/25 Rx pregabalin 200 mg capsule 200 mg PO TID #90 caps 02/23/25 Rx New Prescriptions to Start Prescriptions: Allergies Allergy/AdvReac Type Severity Reaction Status Date / Time barley AdvReac Verified 02/28/24 15:09 metformin AdvReac Verified 02/28/24 15:09 milk AdvReac Verified 02/28/24 15:09 sitagliptin AdvReac Verified 02/28/24 15:09 Exam Constitutional Constitutional: no acute distress *Routine HEENT Exam Head: Present normocephalic and atraumatic Eye: Present PERRL ENT: Present mucous membranes moist *Routine Neck Exam Neck: Present supple *Routine Respiratory Exam Respiratory: Present CTA bilaterally *Routine Cardiovascular Exam Cardiovascular: Present RRR *Routine Abdominal Exam Abdominal: Present soft *Routine Rectal Exam Rectal:: deferred *Routine Genitalia Exam Genitalia:: deferred Routine Back/Spine/Pelvis Exam Back/Spine: Present pain with flexion *Routine Skin Exam Skin: Present intact and warm *Routine Neurological Exam Neurological: Present alert and oriented X3 Routine Psychiatric Exam Psychiatric: Present normal affect and normal thought process Assessment and Plan *Assessment and plan (1) Degenerative disc disease, cervical: Status: Acute Category: Medical Code(s): M50.30 - Other cervical disc degeneration, unspecified cervical region (2) Degenerative disc disease, lumbar: Status: Acute Category: Medical Code(s): M51.369 - Other intervertebral disc degeneration, lumbar region without mention of lumbar back pain or lower extremity pain
--- NOTE | 2025-05-11 11:20 | EXP.PAIN.PRO ---
Procedure Date: 05/11/25 Time: 11:27 Anesthesiologist:: Pao Lea APRN Complications:: None Pre-procedure Diagnosis:: Generative disc disease, chronic pain syndrome Post-procedure Diagnosis:: Same Indications for Procedure:: Patient is a pleasant 55-year-old male who presents today for intrathecal refill and reprogram. He rates his pain today at a 3 out of 10. He denies any new trauma or injury. Patient is currently managed with morphine 5 mg/mL and bupivacaine 5 mg/mL with a daily dose of 0.7293 mg/day. He denies any side effects to this medication and feels like currently the dosage is working well. Patient does have still continued tenderness in and around the pump site. Patient denies trying any topicals to see if this helps with this overall pain. His Octavio has been reviewed and is appropriate. Physical Exam: General: Alert and oriented x3, no acute distress, pleasant and cooperative Lungs: Respirations even and unlabored, symmetrical chest expansion Eyes: PERRL Musculoskeletal: Flexion and extension of lumbar [spine] somewhat guarded secondary to pain, [antalgic gait noted] Neurological: Speech clear, no gross sensory deficit Procedure Details:: Informed consent was obtained and the risk and benefits of the procedure were explained to the patient. The patient had noninvasive monitoring placed including noninvasive blood pressure cuff and pulse oximeter. Patient's pump was interrogated. The area over the pump was cleansed with chlorhexidine as a cleansing solution. In sterile fashion the pump was accessed with a 22-gauge needle. Approximately 7.1 mls of the pump solution was removed and discarded appropriately. The pump was then refilled with 20 mL's of morphine 5 mg/mL and bupivacaine 5 mg/mL. The needle was withdrawn and a bandage was placed over the puncture site. The infusion rate was reprogrammed and continued at its current dosage. The patient tolerated well with no complication. Plan and Disposition:: Patient tolerated the procedure well with no complications and was discharged neurologically intact. I did discuss with the patient due to his continued sensitivity in and around the pump that I would order him the increased concentration of the compounded cream. Patient was also counseled in future if it still continues to be very bothersome that we can discuss the possibility of trigger point injections in future. We will continue to monitor this. Patient will return to clinic on or before their next intrathecal refill date. We will see the patient back in the clinic at the next intrathecal refill. Patient has been instructed to contact the clinic with any concerns before the next appointment. Dr. Cavanaugh has reviewed this note and agrees with this plan of care. This note was dictated using voice recognition software and make contain errors or omissions. -- It Is medically necessary for this patient to continue to have their intrathecal pump refilled at regular intervals. This patient had an intrathecal pain pump implanted after meeting criteria of chronic intractable pain for greater than 3 months and failing conservative treatments. Patient has committed and been compliant to the treatment plan and all planned follow up care. Since implantation of the intrathecal pain pump, the patient has had decreased pain and been more functional. Oral medications have been reduced including intake of oral opioids. Patient continues to do well with intrathecal therapy with decrease in pain symptoms and increase in functional status. Stopping intrathecal medications can lead to life threatening withdrawal, seizures, cardiac arrest, severe pain, and possible . Pumps that are not refilled at regular intervals can be damages and cause and need for replacement. We continually titrate dose and concentration to optimize pain relief and function. We are limited in concentration for certain drugs to safely deliver medications through the pump and stay within the recommendations from the [employer] Consensus Committee Guidelines. Depending on dose and concentration these pumps may need to be refilled sooner than 3 months as we titrate. A UDS is needed to verify patient's compliance with our office pain contract. This is ordered based off specific treatments related to chronic pain with the potential to abuse certain medications.
[2025-05-11 11:23] VITALS: BP 143/71; PULSE 61; RESP 18; O2SAT 96
[2025-05-11 11:24] VITALS: BP 154/74; PULSE 75; RESP 18; O2SAT 95; BMI 31.5
[2025-05-11 11:34] VITALS: BP 130/69; PULSE 66; RESP 16; O2SAT 96
== END 2025-05-11 11:34 | disposition home or self-care (01) ==
PROVIDERS: PCP Internal Medicine; Visit Provider Nurse Practitioner Family
DX: Z45.1 Encounter for adjustment and management of infusion pump (principal); M50.30 Other cervical disc degeneration, unspecified cervical region; M51.369 Other intervertebral disc degeneration, lumbar region without mention of lumbar back pain or lower extremity pain; G89.4 Chronic pain syndrome; E11.9 Type 2 diabetes mellitus without complications; Z98.1 Arthrodesis status; E78.5 Hyperlipidemia, unspecified; I10 Essential (primary) hypertension; Z88.8 Allergy status to other drugs, medicaments and biological substances; Z91.011 Allergy to milk products; Z79.891 Long term (current) use of opiate analgesic; Z79.4 Long term (current) use of insulin; Z79.899 Other long term (current) drug therapy
CPT/HCPCS: 62370

== ENCOUNTER 2025-09-20 11:11 | Outpatient (CLI) | payer MEDICARE, SELFPAY ==
[2025-09-25 22:08] LABS: Amphetamines IA Negative ng/mL (Cutoff:50); Barbituates IA Negative ug/mL (Cutoff:0.1); Benzodiazepines IA Negative ng/mL (Cutoff:20); Cocaine & Metabolites IA Negative ng/mL (Cutoff:25); Fentanyl, IA Negative ng/mL (Cutoff:1.0); Meperidine, IA Negative ng/mL (Cutoff:100); Methadone IA Negative ng/mL (Cutoff:25); Opiates IA Negative ng/mL (Cutoff:5); Oxycodone IA Negative ng/mL (Cutoff:5); Phencyclidine IA Negative ng/mL (Cutoff:8); Propoxyphene IA Negative ng/mL (Cutoff:50); THC (marijauna) metabolite IA Negative ng/mL (Cutoff:5); Tramadol, IA Negative ng/mL (Cutoff:50)
== END 2025-09-20 23:59 | disposition home or self-care (01) ==
LOC: LAB 11:12
PROVIDERS: PCP Internal Medicine; Visit Provider Nurse Practitioner Family
DX: Z79.891 Long term (current) use of opiate analgesic (principal)
CPT/HCPCS: 36415; 80307